=== PATIENT | male | born 1995 | race Two or more races ===

== ENCOUNTER 2018-07-17 18:30 | Emergency (ER) | payer OTHER ==
[~2018-07-17] VITALS: Ht 152.4 cm; Wt 56.2 kg
== END 2018-07-17 21:54 | disposition home or self-care (01) ==
LOC: ER 18:30
DX: R10.13 Epigastric pain (principal)

== ENCOUNTER 2018-07-18 11:18 | Emergency (ER) | payer OTHER ==
[~2018-07-18] VITALS: Ht 152.4 cm; Wt 56.2 kg
== END 2018-07-18 12:34 | disposition home or self-care (01) ==
LOC: ER 11:18
DX: R10.13 Epigastric pain (principal); M79.18 Myalgia, other site

== ENCOUNTER 2022-01-09 12:21 | Emergency (ER) | payer OTHER ==
[~2022-01-09] VITALS: Ht 157.5 cm; Wt 71.2 kg
== END 2022-01-09 17:08 | disposition home or self-care (01) ==
LOC: ER 12:21
DX: U07.1 COVID-19 (principal); R51.9 Headache, unspecified; R50.9 Fever, unspecified

== ENCOUNTER 2022-01-14 16:35 | Emergency (ER) | payer OTHER ==
[~2022-01-14] VITALS: Ht 152.4 cm; Wt 54.4 kg
[2022-01-14] MEDS ORDERED: ALLEGRA ALLERG180 MG PO (21:48)
== END 2022-01-14 22:09 | disposition home or self-care (01) ==
LOC: ER 16:35
DX: R10.32 Left lower quadrant pain (principal); R21 Rash and other nonspecific skin eruption; U07.1 COVID-19

== ENCOUNTER 2022-06-06 16:07 | Emergency (ER) | payer OTHER ==
[~2022-06-06] VITALS: Ht 157.5 cm; Wt 59.0 kg
[~2022-06-06 16:07] MED LIST: ALLEGRA ALLERG180 MG PO
[2022-06-06] MEDS ORDERED: AMOX-CLAV 875-1 EAC1 PO (18:38)
[2022-06-06] MEDS ORDERED: FLONASE ALLERG9.9 ML NASAL (18:54)
[2022-06-06] MEDS ORDERED: MUCINEX DM ER1 EAC1 PO ×2 (18:55→18:57)
== END 2022-06-06 19:03 | disposition home or self-care (01) ==
LOC: ER 16:07
DX: J31.0 Chronic rhinitis (principal); J06.9 Acute upper respiratory infection, unspecified; Z72.0 Tobacco use

== ENCOUNTER → 2022-08-02 | Emergency (ER) | payer OTHER ==
[~2022-08-02] VITALS: Ht 157.5 cm; Wt 59.0 kg
[~2022-08-02] MED LIST changes: +AMOX-CLAV 875-1 EAC1 PO; +FLONASE ALLERG9.9 ML NASAL; +MUCINEX DM ER1 EAC1 PO
== END | disposition home or self-care (01) ==
LOC: ER 12:04
DX: L60.0 Ingrowing nail (principal)

== ENCOUNTER 2022-08-11 19:26 | Emergency (ER) | payer OTHER ==
[~2022-08-11] VITALS: Ht 157.5 cm; Wt 59.0 kg
== END 2022-08-11 21:55 | disposition home or self-care (01) ==
LOC: ER 19:26
DX: L03.031 Cellulitis of right toe (principal)

== ENCOUNTER 2022-12-26 00:52 | Emergency (ER) | payer OTHER ==
[~2022-12-26] VITALS: Ht 157.5 cm; Wt 59.0 kg
== END 2022-12-26 03:07 | disposition home or self-care (01) ==
LOC: ER 00:52
DX: R53.81 Other malaise (principal); M94.0 Chondrocostal junction syndrome [Tietze]

== ENCOUNTER 2023-06-23 18:51 | Emergency (ER) | payer OTHER ==
[~2023-06-23] VITALS: Ht 157.5 cm; Wt 59.0 kg
== END 2023-06-23 23:13 | disposition home or self-care (01) ==
LOC: ER 18:51
DX: R53.81 Other malaise (principal); R07.89 Other chest pain

== ENCOUNTER 2024-05-08 18:26 | Emergency (ER) | payer OTHER ==
[~2024-05-08] VITALS: Ht 162.6 cm; Wt 63.5 kg
[2024-05-08 19:15] VITALS: BP 122/80; O2SAT 100
[2024-05-08] MEDS ORDERED: FAMOtidine 10 MG/ML (4ML VIAL) IV PUSH ONE (20:15)
[2024-05-08] MEDS ORDERED: ONDANSETRON HCL 2 MG/ML VIAL IM ONE (20:15)
== END 2024-05-08 20:56 | disposition home or self-care (01) ==
LOC: ER 18:28
DX: K29.70 Gastritis, unspecified, without bleeding (principal); R11.10 Vomiting, unspecified

== ENCOUNTER 2024-09-28 01:32 | Emergency (ER) | payer OTHER ==
[~2024-09-28] VITALS: Ht 162.6 cm; Wt 59.0 kg
[2024-09-28] MEDS ORDERED: TETANUS & DIPHTHERIA TOX,ADULT 0.5 ML VIAL IM STA (01:38)
[2024-09-28] MEDS ORDERED: CEFTRIAXONE SODIUM 1,000 MG VIAL IM STA (01:38)
[2024-09-28] MEDS ORDERED: CEFADROXIL500 MG PO (02:26)
== END 2024-09-28 02:42 | disposition home or self-care (01) ==
LOC: ER 01:33
DX: S71.131A Puncture wound without foreign body, right thigh, initial encounter (principal); W26.0XXA Contact with knife, initial encounter; Y93.89 Activity, other specified; Y92.89 Other specified places as the place of occurrence of the external cause; Y99.9 Unspecified external cause status